=== PATIENT | male | born 1955 | race Caucasian/White ===

== ENCOUNTER → 2023-08-17 | Outpatient (CLI) | payer BC ==
[~2023-08-17] MED LIST: ALEVE220 MG; ALLO100; ASPI81CH; ATOR10; Alphagan P5 ML; COLCHICINE0.6 MG; LISI20; TIMDOROPSO
[2023-08-17 14:52] LABS: BASOPHILS ABSOLUTE AUTO 0.07 K/mm3 (0.00-0.23); BASOPHILS PERCENT AUTO 0 % (0-2); EOSINOPHILS ABSOLUTE AUTO 0.09 K/mm3 (0.00-0.68); EOSINOPHILS PERCENT AUTO 1 % (0-6); Hemoglobin 15.5 g/dL (13.5-17.5); IMMATURE GRAN ABSOLUTE AUTO 0.16 K/mm3 (0.00-0.10); IMMATURE GRAN PERCENT AUTO 1 % (0-1); LYMPHOCYTES PERCENT AUTO 7 % (21-46); MONOCYTES ABSOLUTE AUTO 1.28 K/mm3 (0.16-1.47); MONOCYTES PERCENT AUTO 7 % (4-13); Mean Corpuscular HGB 34.6 pg (26.0-34.0); Mean Corpuscular HGB Conc 35.2 g/dL (31.5-36.5); Mean Corpuscular Volume 98 fL (80-100); Mean Platelet Volume 9.5 fL (9.1-12.4); NEUTROPHILS ABSOLUTE AUTO 14.54 K/mm3 (1.96-9.15); NEUTROPHILS PERCENT AUTO 84 % (41-73); Platelet Count 238 K/mm3 (150-400); RDW Coefficient Variation 14.6 % (11.7-14.2); RDW Standard Deviation 52.7 fL (35.1-46.3); Red Blood Cell Count 4.48 M/mm3 (4.30-5.90); White Blood Cell Count 17.34 K/mm3 (4.00-11.30)
[2023-08-17 15:09] LABS: Albumin, Blood 3.5 g/dL (3.4-5.0); Albumin/Globulin Ratio 0.6 (0.8-1.8); Bun/Creatinine Ratio 18.3 (12.0-20.0); Calcium, Blood 11.2 mg/dL (8.5-10.1); Creatinine, Blood 2.02 mg/dL (0.60-1.20); Globulin, Blood 5.4 g/dL (2.2-4.0); Potassium, Blood 4.6 mmol/L (3.5-5.5); Total Protein, Blood 8.9 g/dL (6.4-8.2)
== END | disposition home or self-care (01) ==
LOC: LAB SHORT 14:48 → LAB 14:48
PROVIDERS: Chiropractor
DX: L03.115 Cellulitis of right lower limb (principal); R60.0 Localized edema
CPT/HCPCS: 80053; 85025; 85379

== ENCOUNTER → 2023-08-18 | Outpatient (CLI) | payer BC ==
[2023-08-18 13:16] LABS: BASOPHILS ABSOLUTE AUTO 0.06 K/mm3 (0.00-0.23); BASOPHILS PERCENT AUTO 1 % (0-2); EOSINOPHILS ABSOLUTE AUTO 0.13 K/mm3 (0.00-0.68); EOSINOPHILS PERCENT AUTO 1 % (0-6); Hematocrit 41.8 % (37.0-53.0); Hemoglobin 14.7 g/dL (13.5-17.5); IMMATURE GRAN ABSOLUTE AUTO 0.35 K/mm3 (0.00-0.10); IMMATURE GRAN PERCENT AUTO 3 % (0-1); LYMPHOCYTES ABSOLUTE AUTO 1.09 K/mm3 (0.84-5.20); LYMPHOCYTES PERCENT AUTO 9 % (21-46); MONOCYTES ABSOLUTE AUTO 0.97 K/mm3 (0.16-1.47); MONOCYTES PERCENT AUTO 8 % (4-13); Mean Corpuscular HGB 34.6 pg (26.0-34.0); Mean Corpuscular HGB Conc 35.2 g/dL (31.5-36.5); Mean Corpuscular Volume 98 fL (80-100); Mean Platelet Volume 9.7 fL (9.1-12.4); NEUTROPHILS ABSOLUTE AUTO 10.19 K/mm3 (1.96-9.15); NEUTROPHILS PERCENT AUTO 80 % (41-73); Platelet Count 251 K/mm3 (150-400); RDW Coefficient Variation 14.4 % (11.7-14.2); RDW Standard Deviation 51.8 fL (35.1-46.3); Red Blood Cell Count 4.25 M/mm3 (4.30-5.90); White Blood Cell Count 12.79 K/mm3 (4.00-11.30)
[2023-08-18 13:25] LABS: Albumin, Blood 3.3 g/dL (3.4-5.0); Albumin/Globulin Ratio 0.6 (0.8-1.8); Bilirubin, Total 0.7 mg/dL (0.1-1.0); Bun/Creatinine Ratio 19.6 (12.0-20.0); Calcium, Blood 10.4 mg/dL (8.5-10.1); Creatinine, Blood 1.99 mg/dL (0.60-1.20); Globulin, Blood 5.3 g/dL (2.2-4.0); Potassium, Blood 4.7 mmol/L (3.5-5.5); Total Protein, Blood 8.6 g/dL (6.4-8.2)
== END | disposition home or self-care (01) ==
LOC: LAB 13:11 → LAB SHORT 13:11
PROVIDERS: Chiropractor
DX: L03.115 Cellulitis of right lower limb (principal)
CPT/HCPCS: 80053; 85025

== ENCOUNTER → 2023-08-19 | Outpatient (CLI) | payer BC ==
[2023-08-19 13:11] LABS: BASOPHILS ABSOLUTE AUTO 0.07 K/mm3 (0.00-0.23); BASOPHILS PERCENT AUTO 1 % (0-2); EOSINOPHILS ABSOLUTE AUTO 0.15 K/mm3 (0.00-0.68); EOSINOPHILS PERCENT AUTO 2 % (0-6); Hematocrit 40.7 % (37.0-53.0); Hemoglobin 14.4 g/dL (13.5-17.5); IMMATURE GRAN ABSOLUTE AUTO 0.29 K/mm3 (0.00-0.10); IMMATURE GRAN PERCENT AUTO 3 % (0-1); LYMPHOCYTES PERCENT AUTO 9 % (21-46); MONOCYTES ABSOLUTE AUTO 0.93 K/mm3 (0.16-1.47); MONOCYTES PERCENT AUTO 10 % (4-13); Mean Corpuscular HGB 34.9 pg (26.0-34.0); Mean Corpuscular HGB Conc 35.4 g/dL (31.5-36.5); Mean Corpuscular Volume 99 fL (80-100); Mean Platelet Volume 9.8 fL (9.1-12.4); NEUTROPHILS ABSOLUTE AUTO 7.37 K/mm3 (1.96-9.15); NEUTROPHILS PERCENT AUTO 76 % (41-73); Platelet Count 273 K/mm3 (150-400); RDW Coefficient Variation 14.2 % (11.7-14.2); RDW Standard Deviation 51.5 fL (35.1-46.3); Red Blood Cell Count 4.13 M/mm3 (4.30-5.90); White Blood Cell Count 9.71 K/mm3 (4.00-11.30)
[2023-08-19 13:14] LABS: Bun/Creatinine Ratio 18.4 (12.0-20.0); Calcium, Blood 10.3 mg/dL (8.5-10.1); Creatinine, Blood 1.96 mg/dL (0.60-1.20); Potassium, Blood 4.8 mmol/L (3.5-5.5)
== END | disposition home or self-care (01) ==
LOC: LAB SHORT 13:07 → LAB 13:07
PROVIDERS: Chiropractor
DX: L03.115 Cellulitis of right lower limb (principal)
CPT/HCPCS: 80048; 85025

== ENCOUNTER 2023-10-11 20:45 | Inpatient (IN) | payer MEDICAID ==
[~2023-10-11] VITALS: Ht 180.3 cm; Wt 123.2 kg
[2023-10-11 21:09] LABS: BASOPHILS ABSOLUTE AUTO 0.05 K/mm3 (0.00-0.23); BASOPHILS PERCENT AUTO 1 % (0-2); EOSINOPHILS ABSOLUTE AUTO 0.23 K/mm3 (0.00-0.68); EOSINOPHILS PERCENT AUTO 3 % (0-6); Hematocrit 36.1 % (37.0-53.0); Hemoglobin 12.5 g/dL (13.5-17.5); IMMATURE GRAN ABSOLUTE AUTO 0.11 K/mm3 (0.00-0.10); IMMATURE GRAN PERCENT AUTO 2 % (0-1); LYMPHOCYTES ABSOLUTE AUTO 2.09 K/mm3 (0.84-5.20); LYMPHOCYTES PERCENT AUTO 31 % (21-46); MONOCYTES ABSOLUTE AUTO 0.64 K/mm3 (0.16-1.47); MONOCYTES PERCENT AUTO 10 % (4-13); Mean Corpuscular HGB 34.2 pg (26.0-34.0); Mean Corpuscular HGB Conc 34.6 g/dL (31.5-36.5); Mean Corpuscular Volume 99 fL (80-100); NEUTROPHILS ABSOLUTE AUTO 3.58 K/mm3 (1.96-9.15); NEUTROPHILS PERCENT AUTO 54 % (41-73); Platelet Count 229 K/mm3 (150-400); RDW Coefficient Variation 14.4 % (11.7-14.2); RDW Standard Deviation 51.6 fL (35.1-46.3); Red Blood Cell Count 3.66 M/mm3 (4.30-5.90)
[2023-10-11 21:15] LABS: Chloride (POC) 107 mmol/L (98-108); Creatinine (POC) 1.4 mg/dL (0.8-1.3); Glucose (ISTAT POC) 179 mg/dL (70-99); Hemoglobin (POC) 12.2 g/dL (13.5-17.5); Potassium (POC) 4.3 mmol/L (3.5-5.5); Sodium (POC) 139 mmol/L (135-148); Total CO2 (POC) 23 mmol/L (21-32)
[2023-10-11 21:26] LABS: Albumin, Blood 3.2 g/dL (3.4-5.0); Bilirubin, Total 0.3 mg/dL (0.1-1.0); Bun/Creatinine Ratio 20.2 (12.0-20.0); Calcium, Blood 8.9 mg/dL (8.5-10.1); Creatinine, Blood 1.24 mg/dL (0.60-1.20); Globulin, Blood 3.2 g/dL (2.2-4.0); Potassium, Blood 4.2 mmol/L (3.5-5.5); Total Protein, Blood 6.4 g/dL (6.4-8.2)
[2023-10-11 22:33] LABS: Anti-Xa UFH, PHA Monitoring <0.10 IU/mL; International Normalized Ratio 0.98; Prothrombin Time Results 10.3 Sec (9.7-11.5)
[2023-10-12] VITALS (30 sets, daily range): BP systolic 90–139; BP diastolic 72–96
[2023-10-12] MEDS ORDERED: FLOMAX0.4 MG PO (01:22)
[2023-10-12] MEDS ORDERED: LATA.005SO BOTHEYES (01:23)
[2023-10-12 04:13] LABS: BASOPHILS ABSOLUTE AUTO 0.03 K/mm3 (0.00-0.23); BASOPHILS PERCENT AUTO 0 % (0-2); EOSINOPHILS ABSOLUTE AUTO 0.05 K/mm3 (0.00-0.68); EOSINOPHILS PERCENT AUTO 1 % (0-6); Hematocrit 38.7 % (37.0-53.0); Hemoglobin 13.2 g/dL (13.5-17.5); IMMATURE GRAN ABSOLUTE AUTO 0.09 K/mm3 (0.00-0.10); IMMATURE GRAN PERCENT AUTO 1 % (0-1); LYMPHOCYTES ABSOLUTE AUTO 1.03 K/mm3 (0.84-5.20); LYMPHOCYTES PERCENT AUTO 15 % (21-46); MONOCYTES ABSOLUTE AUTO 0.49 K/mm3 (0.16-1.47); MONOCYTES PERCENT AUTO 7 % (4-13); Mean Corpuscular HGB 33.8 pg (26.0-34.0); Mean Corpuscular HGB Conc 34.1 g/dL (31.5-36.5); Mean Corpuscular Volume 99 fL (80-100); Mean Platelet Volume 9.1 fL (9.1-12.4); NEUTROPHILS ABSOLUTE AUTO 5.33 K/mm3 (1.96-9.15); NEUTROPHILS PERCENT AUTO 76 % (41-73); Platelet Count 190 K/mm3 (150-400); RDW Coefficient Variation 14.4 % (11.7-14.2); RDW Standard Deviation 52.2 fL (35.1-46.3); White Blood Cell Count 7.02 K/mm3 (4.00-11.30)
[2023-10-12 05:05] LABS: Albumin, Blood 3.3 g/dL (3.4-5.0); Bilirubin, Total 0.4 mg/dL (0.1-1.0); Bun/Creatinine Ratio 24.6 (12.0-20.0); Calcium, Blood 9.1 mg/dL (8.5-10.1); Creatinine, Blood 1.18 mg/dL (0.60-1.20); Globulin, Blood 3.3 g/dL (2.2-4.0); Potassium, Blood 5.1 mmol/L (3.5-5.5); Total Protein, Blood 6.6 g/dL (6.4-8.2)
--- NOTE | 2023-10-12 08:20 | NUR ---
CARE OF PT ASSUMED AT 0700. PT SLEEPING, AWAKENS TO VOICE. PT ORIENTED X3. PT C/O DIFFUSE CHEST DISCOMFORT 5/10, WORSE WITH A DEEP BREATH. THE PT HAS HAD A COUGH AND BELIEVES THE CHEST PAIN IS RELATED TO THE COUGH; DR MADRID AT BEDSIDE AND GIVEN UPDATE. PLAN IS FOR PT TO RETURN TO THE SIDE [facility] TODAY OR TOMORROW; PT WILL BE KEPT NPO FOR NOW. HEPARIN GTT PER PHARMACY RUNNING AT 12UNITS/KG/HR. AGGRASTAT RUNNING AT 0.15MCG/KG/MIN. TR BAND TO RIGHT WRIST REMOVED. VERY SMALL BRUISE BUT NO HEMATOMA, DR GONZALEZ EXAMINED SITE.
--- NOTE | 2023-10-12 08:49 | NUR ---
BAND CUTTER AT BEDSIDE. HEPARIN GTT INCREASED TO 13UNITS/KG/HR PER PHARMACY.
--- NOTE | 2023-10-12 09:46 | NUR ---
DR DIAZ IN TO SEE PT. HEPARIN GTT TO CONTINUE, AGGRASTAT TO CONTINUE UNTIL 1800 TONIGHT FOR A TOTAL OF 18HOURS. 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 ECHO COMPLETE.
--- NOTE | 2023-10-12 16:03 | NUR ---
HEPARIN GTT INCREASED TO 14UNITS/KG/HR PER PHARMACY ORDER. PT RESTING IN BED WATCHING TV W/O COMPLAINTS; STATES "I'M FEELING BETTER".
--- NOTE | 2023-10-12 17:57 | NUR ---
MULTIPLE PVC'S NOTED W SMALL RUN OF VT/6 BEATS[address] PT [address] DR MADRID CALLED. COREG DC'D, TOPROL XL ORDERED. MAG ORDERED.
--- NOTE | 2023-10-12 19:00 | NUR ---
ASSUMED CARE AT 1900 REPORT GIVEN BY DAY RN. FAMILY IN AT BEDSIDE. PT AWAKE AND ALERT LYING IN BED. RT RADIAL SITE ASSESS WITH DAY RN AND HEPARIN INFUSION. NO VOICED CONCERNS BY PT OR FAMILY AT THIS TIME. CALL PEPE IN REACH.
[2023-10-13] VITALS (39 sets, daily range): BP systolic 95–135; BP diastolic 60–100
[2023-10-13 06:13] LABS: BASOPHILS ABSOLUTE AUTO 0.02 K/mm3 (0.00-0.23); BASOPHILS PERCENT AUTO 0 % (0-2); EOSINOPHILS ABSOLUTE AUTO 0.18 K/mm3 (0.00-0.68); EOSINOPHILS PERCENT AUTO 2 % (0-6); Hematocrit 38.3 % (37.0-53.0); Hemoglobin 13.3 g/dL (13.5-17.5); IMMATURE GRAN ABSOLUTE AUTO 0.09 K/mm3 (0.00-0.10); IMMATURE GRAN PERCENT AUTO 1 % (0-1); LYMPHOCYTES ABSOLUTE AUTO 1.05 K/mm3 (0.84-5.20); LYMPHOCYTES PERCENT AUTO 13 % (21-46); MONOCYTES ABSOLUTE AUTO 0.76 K/mm3 (0.16-1.47); MONOCYTES PERCENT AUTO 9 % (4-13); Mean Corpuscular HGB 33.9 pg (26.0-34.0); Mean Corpuscular HGB Conc 34.7 g/dL (31.5-36.5); Mean Corpuscular Volume 98 fL (80-100); Mean Platelet Volume 9.1 fL (9.1-12.4); NEUTROPHILS ABSOLUTE AUTO 6.26 K/mm3 (1.96-9.15); NEUTROPHILS PERCENT AUTO 75 % (41-73); Platelet Count 177 K/mm3 (150-400); RDW Coefficient Variation 14.4 % (11.7-14.2); RDW Standard Deviation 51.5 fL (35.1-46.3); Red Blood Cell Count 3.92 M/mm3 (4.30-5.90); White Blood Cell Count 8.36 K/mm3 (4.00-11.30)
--- NOTE | 2023-10-13 06:26 | NUR ---
SHIFT SUMMARY SLEPT WELL THROUGHOUT NIGHT. REPORTED 1-2/10 CHEST PAIN THAT INCREASES WITH DEEP BREATHING. IN SR WITH FIRST DEGREE BLOCK, [place] 0.22. SBP 110-130S. HEPARIN INFUSION WAS INCREASED OVERNIGHT FROM 14 TO 16U PER PHARMACY. ON 2L KNOT CUTTER AT START OF SHIFT, NOW ON RA SPO2>95%. HAS BEEN NPO SINCE MIDNIGHT. VOIDING USING URINALS THROUGHOUT NIGHT, ADEQUATE OUTPUT. NO HEMATOMA OR BLEEDING AT RADIAL SITE, ARM BOARD KEPT IN PLACE. NO VOICED CONCERNS BY PT AT THIS TIME, REMAINS AWAKE LYING IN BED. CALL PEPE IN REACH.
[2023-10-13 06:34] LABS: Albumin, Blood 3.4 g/dL (3.4-5.0); Albumin/Globulin Ratio 0.9 (0.8-1.8); Bilirubin, Total 0.8 mg/dL (0.1-1.0); Calcium, Blood 9.7 mg/dL (8.5-10.1); Creatinine, Blood 1.25 mg/dL (0.60-1.20); Globulin, Blood 3.7 g/dL (2.2-4.0); Potassium, Blood 4.5 mmol/L (3.5-5.5); Total Protein, Blood 7.1 g/dL (6.4-8.2)
--- NOTE | 2023-10-13 08:52 | NUR ---
CARE OF PT ASSUMED AT 0700. PT SLEEPING, AWAKENS TO VOICE. C/O CHEST DISCOMFORT 1-2/ WHEN ASKED; PT REPORTS WORSE W A DEEP BREATH. HEPARIN GTT INFUSING AT 17UNITS/KG/HR PER PHARMACY. 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 DR SOW IN TO SEE PT THIS AM, UPDATE GIVEN. RIGHT RADIAL SITE W OPSITE SOFT W/O HEMATOMA. WRIST IMMOBILIZER IN PLACE.
--- NOTE | 2023-10-13 09:37 | NUR ---
DR DIAZ IN TO SEE PT. PT CONSENTED FOR PCI, CONSENT ON CHART. PLAVIX AND ASA GIVEN PER DR DIAZ, OTHER MEDS TO BE GIVEN AFTER PROCEDURE.
--- NOTE | 2023-10-13 10:56 | NUR ---
HEPARIN GTT PLACED ON STANDBY BY AUDITING CLERK. PT TO AUDITING CLERK AT 104
--- NOTE | 2023-10-13 12:58 | NUR ---
PT BACK FROM [facility] AT 1240. PT AWAKE AND ALERT, DENIES C/O PAIN. TR BAND TO RIGHT RADIAL WITH 12CC AIR. CIRC CHECK WNL, PT DENIES PAIN OR NUMBNESS TO RIGHT HAND, CAP REFILL LESS THAN 3SEC, HAND PINK AND WARM. DR DIAZ CALLED TO CHECK ON PT. LASIX TO BE HELD UNTIL TONIGHT'S DOSE. OKAY TO GIVE TOPROL XL NOW. OKAY TO START REMOVING AIR AFTER TWO HOURS PER DR DIAZ. DR DIAZ RECOMMENDING LOSARTAN 25MG FOR PT. HEPARIN CAN BE DC'D PER DR DIAZ. POSSIBLE DC HOME TOMORROW.
--- NOTE | 2023-10-13 13:21 | NUR ---
DR SOW CALLED AND GIVEN UPDATE.
--- NOTE | 2023-10-13 13:31 | NUR ---
DR DIAZ IN TO SEE PT, UPDATE GIVEN.
--- NOTE | 2023-10-13 16:56 | NUR ---
AIR FROM TR BAND REMOVED OVER 1HR W/O ISSUE. AREA SOFT WITHOUT HEMATOMA OR BLEEDING. CIRC CHECK WNL. PT RESTING IN BED W/O COMPLAINTS.
--- NOTE | 2023-10-13 18:47 | NUR ---
PT SITTING AT SIDE OF BED VISITING WITH FRIEND. PT DENIES COMPLAINTS. TR BAND REMOVED, OP-SITE PLACED. AREA SOFT W/O HEMATOMA OR BLEEDING. WRIST IMMOBILIZER ON. VSS.
--- NOTE | 2023-10-13 20:28 | NUR ---
ASSUMED CARE AT 1900 PT LAYING IN BED WATCHING TV AT SHIFT CHANGE. HE IS A/O X4 AND VERY PLESENT WITH STAFF; ABLE TO MAKE HIS NEEDS KNOWN; REPOSITIONS SELF IN BED AND AMBULATES WITH MINIMAL ASSISTANCE. SPO2 >92% ON RA; OCCATIONAL COUGH NOTED, HE STATES THAT HE WAS SICK OVER [place]. HR 70'S. SBP 100'S WITH MAP >80'S; NO C/O CHEST PAIN OR PRESSURE. TOLERATING PO INTAKE WELL; NO NAUSEA. USES URINAL INDEPENDENTLY. RT RADIAL SITE SHOWS NO SIGNS OF BLEEDING OR HEMATOMA; TR BAND REMOVED DURING DAY SHIFT; TEGADERM OVER SITE NOW WITH ARM BOARD IN PLACE. SALINE LOCKED. SEE SHIFT ASSESSMENT FOR FULL ASSESSMENT.
[2023-10-14] VITALS (10 sets, daily range): BP systolic 94–118; BP diastolic 59–87
[2023-10-14 03:40] LABS: BASOPHILS ABSOLUTE AUTO 0.03 K/mm3 (0.00-0.23); BASOPHILS PERCENT AUTO 0 % (0-2); EOSINOPHILS ABSOLUTE AUTO 0.15 K/mm3 (0.00-0.68); EOSINOPHILS PERCENT AUTO 2 % (0-6); Hematocrit 36.9 % (37.0-53.0); Hemoglobin 12.9 g/dL (13.5-17.5); IMMATURE GRAN ABSOLUTE AUTO 0.07 K/mm3 (0.00-0.10); IMMATURE GRAN PERCENT AUTO 1 % (0-1); LYMPHOCYTES ABSOLUTE AUTO 1.13 K/mm3 (0.84-5.20); LYMPHOCYTES PERCENT AUTO 13 % (21-46); MONOCYTES PERCENT AUTO 12 % (4-13); Mean Corpuscular HGB 34.1 pg (26.0-34.0); Mean Corpuscular Volume 98 fL (80-100); Mean Platelet Volume 9.1 fL (9.1-12.4); NEUTROPHILS ABSOLUTE AUTO 6.28 K/mm3 (1.96-9.15); NEUTROPHILS PERCENT AUTO 73 % (41-73); Platelet Count 182 K/mm3 (150-400); RDW Coefficient Variation 14.4 % (11.7-14.2); RDW Standard Deviation 51.3 fL (35.1-46.3); Red Blood Cell Count 3.78 M/mm3 (4.30-5.90); White Blood Cell Count 8.66 K/mm3 (4.00-11.30)
[2023-10-14 03:55] LABS: Bun/Creatinine Ratio 21.9 (12.0-20.0); Calcium, Blood 9.6 mg/dL (8.5-10.1); Creatinine, Blood 1.28 mg/dL (0.60-1.20); Potassium, Blood 4.3 mmol/L (3.5-5.5)
--- NOTE | 2023-10-14 06:08 | NUR ---
END OF SHIFT SUMMARY NO ACUTE EVENTS OVERNIGHT; HE WAS ABLE TO SLEEP ON AND OFF T/O THE NIGHT. HE CONT TO BE A/O X4 AND ABLE TO MAKE HIS NEEDS KNOWN. VSS. USES URINAL INDEPENDENTLY. RT RADIAL SITE SHOWS NO CHANGES, NO BLEEDING OR HEMATOMA. NO C/O CHEST PAIN. WILL REPORT TO AM RN WHEN AVAILABLE.
--- NOTE | 2023-10-14 07:00 | NUR ---
ASSUMPTION OF CARE PT RESTING, WAKENS TO VERBAL STIMULI. HE IS ALERT AND ORIENTED. HE DENIES CP. HE DOES HAVE MILD SOB WHEN LYING FLAT ON HIS R SIDE. TR BAND SITE VISUALIZED WITH CANDY AUGUSTE. CLEAR TEGADERM IN PLACE, SURROUNDING TISSUE SOFT AND NONTENDER. ARM BOARD IN PLACE. VSS AT THIS TIME, PT ON CONTINUOUS TELEMETRY. BED IN LOW POSITION AND CALL LIGHT WITHIN REACH.
[2023-10-14] MEDS ORDERED: ATOR40TA PO (09:51)
[2023-10-14] MEDS ORDERED: CLOP75 PO (09:52)
[2023-10-14] MEDS ORDERED: METO25ER PO (09:53)
[2023-10-14] MEDS ORDERED: FURO20 PO (09:53)
[2023-10-14] MEDS ORDERED: PANT40 PO (09:54)
[2023-10-14] MEDS ORDERED: LOSA25 PO (17:55)
--- NOTE | 2023-10-14 18:42 | NUR ---
DISCHARGE PT PROVIDED DISCHARGE INSTRUCTIONS AND PT EDUCATION. PRESCRIPTIONS FAXED TO [facility] PER PT REQUEST. R RADIAL SITE REMAINS UNCHANGED THROUGHOUT THE SHIFT. ARMBOARD IN PLACE. PT TRANSPORTED TO VEHICLE VIA WHEELCHAIR. FAMILY DRIVING PT HOME.
== END 2023-10-14 18:35 | disposition home or self-care (01) | DRG 321 ==
LOC: ER 20:45 → ICUE 20:46
PROVIDERS: Emergency Medicine; Internal Medicine; ADMIT Internal Medicine
PROC: B2111ZZ Fluoroscopy of Multiple Coronary Arteries using Low Osmolar Contrast (ICD-10-PCS; 2023-10-11)
PROC: 4A023N7 Measurement of Cardiac Sampling and Pressure, Left Heart, Percutaneous Approach (ICD-10-PCS; 2023-10-11)
PROC: 027034Z Dilation of Coronary Artery, One Artery with Drug-eluting Intraluminal Device, Percutaneous Approach (ICD-10-PCS; principal; 2023-10-12)
DX: I21.4 Non-ST elevation (NSTEMI) myocardial infarction (principal); I50.21 Acute systolic (congestive) heart failure; I13.0 Hypertensive heart and chronic kidney disease with heart failure and stage 1 through stage 4 chronic kidney disease, or unspecified chronic kidney disease; I25.110 Atherosclerotic heart disease of native coronary artery with unstable angina pectoris; I25.5 Ischemic cardiomyopathy; G51.0 Bell's palsy; N18.30 Chronic kidney disease, stage 3 unspecified; M10.9 Gout, unspecified; E78.5 Hyperlipidemia, unspecified; N40.0 Benign prostatic hyperplasia without lower urinary tract symptoms; E66.01 Morbid (severe) obesity due to excess calories; Z87.891 Personal history of nicotine dependence; Z28.21 Immunization not carried out because of patient refusal
CPT/HCPCS: 36415; 71045; 76937; 80047; 80048; 80053; 83690; 83735; 83880; 84484; 85014; 85025; 85347; 85520; 85610; 85730; 92920; 92921; 92978; 93005; 93010; 93458; 94762; 96361; 96365; 96366; 96374; 96375; 96376; 99152; 99153; 99285-25; A9270; C1725; C1753; C1769; C1874; C1887; C1894; C8929; C9600; G0378; J0461; J1644; J1940; J2250; J2371; J2405; J3010; J3246; J7030; J7050; Q9957; Q9967